=== PATIENT | male | born 1990 | race Caucasian/White ===

== ENCOUNTER 2018-10-18 14:20 | Emergency (ER) | payer SELFPAY ==
[2018-10-18 14:25] VITALS: BP 132/83
--- NOTE | 2018-10-18 15:06 | EDPHY ---
HPI/HX/ROS/PE/MDM Narrative: CHIEF COMPLAINT: Foot pain HPI: The patient is a 27 y/o male complaining of acute left great toe pain that began yesterday while dancing. He says, "I was dancing last night a little too hard. I'm not sure what I did to it." He cannot describe the mechanism, but did develop acute left great toe pain that is more localized to the base of the toe. He denies pain or symptoms preceding dancing last night. No history of gout or inflammatory conditions. No fever or other injuries. REVIEW OF SYSTEMS: A comprehensive 10 system review of systems is otherwise negative aside from elements mentioned in the history of present illness. PMH: Denies SOCIAL HISTORY: Transient. Single. PHYSICAL EXAM: General:Patient is alert, in no acute distress. Malodorous. Neck: Normal inspection. Full range of motion. Respiratory:No respiratory distress. Cardiovascular: Normal cap refill. Skin: Normal color. No rash. Warm and dry. Extremities: Left foot: swelling and severe tenderness left MTP. Otherwise normal appearance. Full range of motion. Neuro: Oriented x3. Normal motor function. Normal sensory function. ED Course: This is a 27 y/o male who presents with pain along his left MTP that began acutely while dancing last night. He has tenderness and swelling at this site. X -ray is negative for fracture. Considered gout as possible etiology, but the patient reports no preceding symptoms and says it came on suddenly while dancing , though he is unable to describe the mechanism behind the injury. Exam otherwise unremarkable. Recommended treatment with NSAIDs, hard-soled shoe, and orthopedist follow up as needed. He is comfortable with this plan. MDM: This patient presents with 1st MTP pain and swelling that is highly suspicious for gout, but patient states pain began acutely following an injury. Patient is agreeable to plan of conservative treatment for the next few days - he understands that if symptoms do not improve, the likely diagnosis would be gout and he would need to return to the ED or his PCP. - Data Points Imaging Results: Imaging Impressions Foot X-Ray 10/18/18 14:25 Impression: Negative for fracture. Imaging: I viewed and interpreted images myself General Time Seen by Provider: 10/18/18 14:42 Initial Vital Signs: Initial Vital Signs Temperature (C) 36.7 C 10/18/18 14:22 Heart Rate 81 10/18/18 14:22 Respiratory Rate 16 10/18/18 14:22 Blood Pressure 132/83 H 10/18/18 14:22 O2 Sat (%) 98 10/18/18 14:22 O2 Delivery Mode Room Air Allergies/Adverse Reactions: No Known Allergies Allergy (Unverified 10/18/18 14:22) Home Medications: Medication Instructions Recorded NK [No Known Home Meds] 10/18/18 Departure - Departure Disposition: Home, Routine, Self-Care Clinical Impression: Sprain of foot, left Qualifiers: Encounter type: initial encounter Qualified Code(s): S93.602A - Unspecified sprain of left foot, initial encounter Condition: Good Instructions: Foot Sprain (ED) Additional Instructions: 1. Take 600mg ibuprofen every 8 hours for pain over the next few days. 2. Wear hard-soled shoe for the next few days for comfort. 3. Follow up with orthopedist for unimproved symptoms over the next week. Referrals: Kelvin Carter MD [Medical Doctor] - As per Instructions Report Scribed for: Chandler Hodge Report Scribed by: Yris Tellez Date of Report: 10/18/18 Time of Report: 15:12 Physician Review and Approval Statement: Portions of this note were transcribed by an ED scribe. I personally performed the history, physical exam, and medical decision making; and confirm the accuracy of the information in the transcribed note.
== END 2018-10-18 15:19 | disposition home or self-care (01) ==
DX: S93.602A Unspecified sprain of left foot, initial encounter (principal); X50.9XXA Other and unspecified overexertion or strenuous movements or postures, initial encounter; Y93.41 Activity, dancing; Y92.9 Unspecified place or not applicable; Y99.9 Unspecified external cause status
CPT/HCPCS: L4386